=== PATIENT | male | born 1995 | race Asian ===

== ENCOUNTER 2019-06-08 17:00 | Emergency (ER) | payer OTHER ==
[~2019-06-08] VITALS: Ht 167.6 cm; Wt 59.7 kg
[~2019-06-08 17:00] MED LIST: ALBU18HF INHALATION; D-ME118S24 PO
[2019-06-08 17:09] VITALS: BP 114/65; PULSE 56; RESP 18; Ht 167.6 cm; Wt 59.7 kg
== END 2019-06-08 19:33 | disposition home or self-care (01) ==
LOC: E/R 17:00
DX: R05 Cough (principal)
CPT/HCPCS: 71045; Z7502